=== PATIENT | male | born 1975 | race Caucasian/White ===

== ENCOUNTER 2016-12-01 00:25 | Emergency (ER) | payer OTHER ==
[2016-12-01 00:48] VITALS: BMI 34.3
[2016-12-01] MEDS ORDERED: SODIUM CHLORIDE 1,000 ML IV STA (00:57)
[2016-12-01] MEDS ORDERED: morphine CARPU-JECT 4 MG/1 ML DISP.SYRIN IVPUSH ONE (00:57)
[2016-12-01] MEDS ORDERED: ONDANSETRON 4 MG/2 ML VIAL IVPUSH ONE (00:57)
[2016-12-01] MEDS ORDERED: ONDANSETRON 4 MG/2 ML VIAL ONE ×2 (01:07→02:16)
[2016-12-01] MEDS ORDERED: morphine CARPU-JECT 4 MG/1 ML DISP.SYRIN ONE ×2 (01:07→02:10)
[2016-12-01 01:40] LABS: BASOPHIL 0.3 % (0-2.0); EOSINOPHIL 0.4 % (0-4.5); MCH 29.8 pg (25.7-33.7); MCHC 34.3 g/dl (32.0-35.9); MEAN CELL VOLUME 86.8 fl (80-96); MEAN PLT VOLUME 8.6 fl (7.5-11.1); NEUTROPHILS 85.7 % (42.8-82.8); PLATELET COUNT 296 K/MM3 (134-434); RDW 14.3 % (11.9-15.9); WHITE BLOOD COUNT 19.1 K/mm3 (4.0-10.0)
[2016-12-01] MEDS ORDERED: morphine CARPU-JECT 10 MG/1 ML DISP.SYRIN IVPUSH ONE (02:04)
[2016-12-01] MEDS ORDERED: morphine CARPU-JECT 2 MG/1 ML DISP.SYRIN ONE (02:10)
[2016-12-01 02:13] LABS: ALBUMIN 4.2 g/dl (3.4-5.0); ANION GAP 12 (8-16); BILIRUBIN,TOTAL 1.8 mg/dL (0.2-1.0); CALCIUM 9.4 mg/dL (8.5-10.1); CO2 24 mmol/L (21-32); CREATININE 1.1 mg/dL (0.7-1.3); GLUCOSE,RANDOM 93 mg/dL (74-106); SGOT/AST 26 U/L (15-37); SGPT/ALT 35 U/L (12-78); TOT PROT 7.5 g/dl (6.4-8.2)
[2016-12-01 02:14] LABS: ALK PHOS 65 U/L (45-117)
[2016-12-01] MEDS ORDERED: ONDANSETRON 4 MG/2 ML VIAL IVPB ONE (02:15)
[2016-12-01 02:33] LABS: URINE APPEARANCE CLEAR; URINE BILIRUBIN NEGATIVE (NEGATIVE); URINE BLOOD NEGATIVE (NEGATIVE); URINE COLOR YELLOW; URINE GLUCOSE (UA) NEGATIVE (NEGATIVE); URINE KETONE 2+ (NEGATIVE); URINE LEUK ESTERASE NEGATIVE (NEGATIVE); URINE NITRITE NEGATIVE (NEGATIVE); URINE PROTEIN NEGATIVE (NEGATIVE); URINE UROBILINOGEN 2.0 E.U/dl E.U./dl (0.2-1.0)
[2016-12-01 02:46] LABS: TROPONIN I < 0.02 ng/ml (0.00-0.05)
--- NOTE | 2016-12-01 02:53 | PDOC ---
"History of Present Illness - General Chief Complaint: Pain Stated Complaint: ABD PAIN/NAUSEA Time Seen by Provider: 12/01/16 00:34 History Source: Patient Exam Limitations: No Limitations - History of Present Illness Travel History: No Initial Comments: 12/01/16 02:48 41yo Male patient w/ PmHx: diverticulitis presents to ED c/o Mid abdominal to lower abd pain beginning yesterday. 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 Patient reports while he was in bathroom today he became dizzy, pale and nauseous. Last BM today (small trell). PCP- Dr. Cuello. 12/01/16 06:35 PATIENT STATES HE BELIEVES SYMPTOMS MAKE BE TRIGGERED DUE TO EATING POPCORN LAST NIGHT. Timing/Duration: reports: getting worse Quality: reports: moderate, other (Waves) Abdominal Pain Onset Location: reports: LLQ, epigastric Pain Radiation: reports: no radiation Activities at Onset: reports: none Past History - Travel Traveled outside of the country in the last 30 days: No Close contact w/someone who was outside of country & ill: No - Past Medical History Allergies/Adverse Reactions: Allergies Allergy/AdvReac Type Severity Reaction Status Date / Time No Known Allergies Allergy Verified 12/01/16 00:38 Home Medications: Ambulatory Orders Oxycodone HCl/Acetaminophen [Percocet 10-325 mg Tablet] 1 each PO Q6H PRN #24 tablet MDD 4 tabs 12/01/16 GI Disorders: Yes (DIVERTICULOSIS/ HIATAL HERNIA) - Immunization History Immunization Up to Date: No - Psycho/Social/Smoking Cessation Hx Suicidal Ideation: No Smoking History: Never smoked Have you smoked in the past 12 months: No Information on smoking cessation initiated: No Hx Alcohol Use: No Drug/Substance Use Hx: No Substance Use Type: None Abd/GI Specific PMHX - Complaint Specific PMHX Colitis: No Diverticulitis: Yes Gall Bladder Disease: No GERD: No Hepatitis: No Irritable Bowel Synd (IBS): No Pancreatitis: No GI Ulcer Disease: No Review of Systems - Review of Systems Able to Perform ROS?: Yes Is the patient limited Swedish proficient: No Constitutional: No: Chills, Fever Respiratory: No: Cough, Orthopnea, Wheezing Cardiac (ROS): No: Chest Pain, Lightheadedness, Palpitations, Syncope ABD/GI: Yes: Nausea, Vomiting, Other (Mid abdominal pain radiating to LLQ). No : Diarrhea, Poor Appetite, Poor Fluid Intake, Rectal Bleeding, Abdominal cramping : No: Burning, Dysuria, Discharge, Frequency, Flank Pain, Pain Musculoskeletal: No: Back Pain Hematologic/Lymphatic: Yes: Symptoms Reported *Physical Exam - Vital Signs Last Vital Signs Temp Pulse Resp BP Pulse Ox 97.8 F 89 20 126/72 98 12/01/16 00:38 12/01/16 00:38 12/01/16 00:38 12/01/16 00:38 12/01/16 00:38 - Physical Exam General Appearance: Yes: Nourished, Appropriately Dressed, Moderate Distress. No: Apparent Distress, Mild Distress, Severe Distress Neck: positive: Trachea midline, Supple. negative: Lymphadenopathy (R), Lymphadenopathy (L) Respiratory/Chest: positive: Lungs Clear, Normal Breath Sounds. negative: Respiratory Distress, Accessory Muscle Use, Labored Respiration, Rapid RR, Decreased Breath Sounds, Stridor, Wheezing Cardiovascular: positive: Regular Rhythm, Regular Rate Gastrointestinal/Abdominal: positive: Soft, Increased Bowel Sounds, Guarding, Rebound, Tenderness (Generalized abdominal tenderness.). negative: Distended Musculoskeletal: positive: Normal Inspection. negative: CVA Tenderness Extremity: positive: Normal Capillary Refill, Normal Inspection, Normal Range of Motion Integumentary: positive: Normal Color, Dry, Warm Neurologic: positive: court monitor II-XII NML intact, Fully Oriented, Alert, Normal Mood/ Affect, Normal Response, Motor Strength 5/5 ED Treatment Course - LABORATORY CBC & Chemistry Diagram: 12/01/16 01:20 12/01/16 01:20 - ADDITIONAL ORDERS Additional order review: Laboratory Results 12/01/16 12/01/16 02:26 01:20 Sodium 138 Potassium 3.6 Chloride 102 Carbon Dioxide 24 Anion Gap 12 BUN 13 Creatinine 1.1 Creat Clearance w eGFR > 60 Random Glucose 93 Calcium 9.4 Total Bilirubin 1.8 H D AST 26 ALT 35 Alkaline Phosphatase 65 Total Protein 7.5 Albumin 4.2 Urine Color Yellow Urine Appearance Clear Urine pH 6.0 Ur Specific [place] 1.015 Urine Protein Negative Urine Glucose (UA) Negative Urine Ketones 2+ H Urine Blood Negative Urine Nitrite Negative Urine Bilirubin Negative Urine Urobilinogen 2.0 e.u/dl Ur Leukocyte Esterase Negative 12/01/16 01:20 RBC 5.37 MCV 86.8 MCHC 34.3 RDW 14.3 MPV 8.6 Neutrophils % 85.7 H Lymphocytes % 6.6 L D Monocytes % 7.0 Eosinophils % 0.4 Basophils % 0.3 - RADIOLOGY Radiology Studies Ordered: Category Date Time Status ABDOMEN & PELVIS CT WITH CONTR [CT] Stat CT Scan 12/01/16 02:01 Ordered - Medications Given in the ED: ED Medications Discontinued Medications Generic Name Dose Route Start Last Admin Trade Name Freq PRN Reason Stop Dose Admin Sodium Chloride 1,000 mls @ 1,000 mls/hr 12/01/16 00:57 12/01/16 01:25 Normal Saline - IV 12/01/16 01:56 1,000 mls/hr ASDIR STA Administration Morphine Sulfate 4 mg 12/01/16 00:57 12/01/16 01:25 Morphine Injection - IVPUSH 12/01/16 00:58 4 mg ONCE ONE Administration Morphine Sulfate 6 mg 12/01/16 02:04 12/01/16 02:20 Morphine Injection - IVPUSH 12/01/16 02:05 6 mg ONCE ONE Administration Ondansetron HCl 4 mg 12/01/16 00:57 12/01/16 01:26 Zofran Injection IVPUSH 12/01/16 00:58 4 mg ONCE ONE Administration Ondansetron HCl 8 mg 12/01/16 02:15 12/01/16 02:21 Zofran Injection IVPB 12/01/16 02:16 8 mg ONCE ONE Administration Progress Note - Progress Note Progress Note: Search Terms: Miguel Adams, 1975 Search Date: 12/01/2016 06:32:41 AM The Drug Utilization Report below displays all of the controlled substance prescriptions, if any, that your patient has filled in the last twelve months. The information displayed on this report is compiled from pharmacy submissions to the Department, and accurately reflects the information as submitted by the pharmacies. This report was requested by: Gabe Perea | Reference #: [id number] *DC/Admit/Observation/Transfer Diagnosis at time of Disposition: Reflux esophagitis Diverticulitis Qualifiers: Diverticulitis site: large intestine Diverticulitis bleeding: without bleeding Diverticulitis complication: without perforation or abscess Qualified Code(s): K57.32 - Diverticulitis of large intestine without perforation or abscess without bleeding - Discharge Dispostion Disposition: HOME Condition at time of disposition: Improved Admit: No - Prescriptions Prescriptions: Oxycodone HCl/Acetaminophen [Percocet 10-325 mg Tablet] 1 each PO Q6H PRN #24 tablet MDD 4 tabs PRN Reason: Severe Pain - Patient Instructions Printed Discharge Instructions: DI for Diverticulitis, DI for Gastroesophageal Reflux Disease (GERD) Additional Instructions: FOLLOW UP WITH DR. KRAUS ([facility]) OR YOUR GI SPECIALIST. CALL TO SCHEDULE APPOINTMENT. TAKE MEDICATIONS PRESCRIBED. DO NOT DRIVE, DRINK ALCOHOL, OR OPERATE HEAVY MACHINERY WHILE TAKING PERCOCET. DRINK PLENTY WATER. AVOID ALCOHOL , SPICY FOODS AND FOODS WITH SEEDS. Print Language: SRI LANKAN - Post Discharge Activity Work/School Note: Back to Work"
--- NOTE | 2016-12-01 06:21 | PDOC ---
[id number] 98 12/01/16 00:38 12/01/16 00:38 12/01/16 00:38 12/01/16 00:38 12/01/16 00:38 ED Treatment Course - LABORATORY CBC & Chemistry Diagram: 12/01/16 01:20 12/01/16 01:20 - ADDITIONAL ORDERS Additional order review: Laboratory Results 12/01/16 12/01/16 12/01/16 02:26 01:20 01:20 Sodium 138 Potassium 3.6 Chloride 102 Carbon Dioxide 24 Anion Gap 12 BUN 13 Creatinine 1.1 Creat Clearance w eGFR > 60 Random Glucose 93 Calcium 9.4 Total Bilirubin 1.8 H D AST 26 ALT 35 Alkaline Phosphatase 65 Creatine Kinase 251 Creatine Kinase Index 0.5 CK-MB (CK-2) 1.222 Troponin I < 0.02 Total Protein 7.5 Albumin 4.2 Urine Color Yellow Urine Appearance Clear Urine pH 6.0 Ur Specific [place] 1.015 Urine Protein Negative Urine Glucose (UA) Negative Urine Ketones 2+ H Urine Blood Negative Urine Nitrite Negative Urine Bilirubin Negative Urine Urobilinogen 2.0 e.u/dl Ur Leukocyte Esterase Negative 12/01/16 01:20 RBC 5.37 MCV 86.8 MCHC 34.3 RDW 14.3 MPV 8.6 Neutrophils % 85.7 H Lymphocytes % 6.6 L D Monocytes % 7.0 Eosinophils % 0.4 Basophils % 0.3 - Medications Given in the ED: ED Medications Discontinued Medications Generic Name Dose Route Start Last Admin Trade Name Freq PRN Reason Stop Dose Admin Sodium Chloride 1,000 mls @ 1,000 mls/hr 12/01/16 00:57 12/01/16 01:25 Normal Saline - IV 12/01/16 01:56 1,000 mls/hr ASDIR STA Administration Morphine Sulfate 4 mg 12/01/16 00:57 12/01/16 01:25 Morphine Injection - IVPUSH 12/01/16 00:58 4 mg ONCE ONE Administration Morphine Sulfate 6 mg 12/01/16 02:04 12/01/16 02:20 Morphine Injection - IVPUSH 12/01/16 02:05 6 mg ONCE ONE Administration Ondansetron HCl 4 mg 12/01/16 00:57 12/01/16 01:26 Zofran Injection IVPUSH 12/01/16 00:58 4 mg ONCE ONE Administration Ondansetron HCl 8 mg 12/01/16 02:15 12/01/16 02:21 Zofran Injection IVPB 12/01/16 02:16 8 mg ONCE ONE Administration Medical Decision Making - Medical Decision Making 12/01/16 06:21 agree with care from CIGAR MAKING MACHINE SUPERVISOR Eliazar *DC/Admit/Observation/Transfer Diagnosis at time of Disposition: Diverticulitis, Reflux esophagitis - Discharge Dispostion Disposition: HOME Condition at time of disposition: Improved - Prescriptions Prescriptions: Oxycodone HCl/Acetaminophen [Percocet 10-325 mg Tablet] 1 each PO Q6H PRN #24 tablet MDD 4 tabs PRN Reason: Severe Pain - Referrals Referrals: Mendel Cuello [Primary Care Provider] - - Patient Instructions Printed Discharge Instructions: DI for Diverticulitis, DI for Gastroesophageal Reflux Disease (GERD) Additional Instructions: FOLLOW UP WITH DR. KRAUS ([facility]) OR YOUR GI SPECIALIST. CALL TO SCHEDULE APPOINTMENT. TAKE MEDICATIONS PRESCRIBED. DO NOT DRIVE, DRINK ALCOHOL, OR OPERATE HEAVY MACHINERY WHILE TAKING PERCOCET. DRINK PLENTY WATER. AVOID ALCOHOL , SPICY FOODS AND FOODS WITH SEEDS. Print Language: HEBREW - Post Discharge Activity Work/School Note: Back to Work
[2016-12-01] MEDS ORDERED: OXYCODONE/APAP 5/325MG COMBO TABLET PO ONE (06:26)
[2016-12-01] MEDS ORDERED: CIPROFLOXACIN 250 MG TABLET (RESTRICTED TO ID) PO ONE (06:26)
[2016-12-01] MEDS ORDERED: metroNIDAZOLE 250 MG TABLET PO ONE (06:26)
[2016-12-01] MEDS ORDERED: OXYCODONE/APAP 5/325MG COMBO TABLET ONE (06:34)
[2016-12-01] MEDS ORDERED: metroNIDAZOLE 250 MG TABLET ONE (06:35)
[2016-12-01 06:47] VITALS: BP 125/76; PULSE 96; TEMP 98.3
== END 2016-12-01 06:49 | disposition home or self-care (01) ==
LOC: JER 00:25
PROC: 3E033NZ Introduction of Analgesics, Hypnotics, Sedatives into Peripheral Vein, Percutaneous Approach (ICD-10-PCS; principal; 2016-12-01)
PROC: 3E033GC Introduction of Other Therapeutic Substance into Peripheral Vein, Percutaneous Approach (ICD-10-PCS; 2016-12-01)
PROC: 3E0337Z Introduction of Electrolytic and Water Balance Substance into Peripheral Vein, Percutaneous Approach (ICD-10-PCS; 2016-12-01)
DX: K21.0 Gastro-esophageal reflux disease with esophagitis (principal); K57.32 Diverticulitis of large intestine without perforation or abscess without bleeding
CPT/HCPCS: 36415; 74177-TC; 80053; 81003; 82550; 82553; 84484; 85025; 87040; 99282-25

== ENCOUNTER 2021-07-06 20:54 | Emergency (ER) | payer OTHER ==
[2021-07-06 21:29] VITALS: TEMP 100.8; BMI 34.3
[2021-07-06] MEDS ORDERED: CEFTRIAXONE 1 GM in DEXTROSE 5%-WATER - 50 ML IVPB ONE (22:04)
[2021-07-06] MEDS ORDERED: ACETAMINOPHEN 1000 MG/100 ML VIAL IVPB ONE ×2 (22:04→22:16)
[2021-07-06] MEDS ORDERED: SODIUM CHLORIDE 1,000 ML IV STA (22:05)
[2021-07-06] MEDS ORDERED: KETOROLAC TROMETHAMINE 30 MG/1 ML VIAL IVPUSH ONE ×2 (22:11→23:24)
[2021-07-06] MEDS ORDERED: KETOROLAC TROMETHAMINE 30 MG/1 ML VIAL ONE (22:14)
[2021-07-06] MEDS ORDERED: ACETAMINOPHEN INJECTION 100 ML IVPB ONE (22:15)
[2021-07-06] MEDS ORDERED: SODIUM CHLORIDE 500 ML IV STA (22:22)
[2021-07-06 22:24] LABS: EPI CELLS 0 /uL (0-25.1); HYALINE CASTS 0 /uL (0-3.1); URINE APPEARANCE CLOUDY; URINE BACTERIA >9,000 /uL (0-1359); URINE BILIRUBIN NEGATIVE (NEGATIVE); URINE COLOR YELLOW; URINE GLUCOSE (UA) NEGATIVE (NEGATIVE); URINE KETONE NEGATIVE (NEGATIVE); URINE LEUK ESTERASE 3+ (NEGATIVE); URINE NITRITE NEGATIVE (NEGATIVE); URINE PROTEIN NEGATIVE (NEGATIVE); URINE RBC 19 /uL (0-23.9); URINE UROBILINOGEN 0.2 mg/dL (0.2-1.0); URINE WBC 1061 /uL (0-25.8)
[2021-07-06] MEDS ORDERED: CEFTRIAXONE 1,000 MG in DEXTROSE 5%-WATER - 50 ML IVPB ONE (22:41)
[2021-07-06] MEDS ORDERED: CEFTRIAXONE 1 GM/50 ML BAG ONE (22:43)
[2021-07-06 22:48] LABS: HEMATOCRIT 44.5 % (35.4-49); HEMOGLOBIN 15.1 GM/dL (11.7-16.9); MCH 29.4 pg (25.7-33.7); MEAN CELL VOLUME 86.5 fl (80-96); MEAN PLT VOLUME 7.9 fl (7.5-11.1); PLATELET COUNT 294 10^3/uL (134-434); RBC 5.14 M/mm3 (4.00-5.60); RDW 13.6 % (11.9-15.9)
[2021-07-06 23:17] LABS: ALBUMIN 3.9 g/dl (3.4-5.0); BLOOD UREA NITROGEN 11.2 mg/dL (7-18)
[2021-07-06 23:18] LABS: ANISOCYTOSIS 2+; MACROCYTOSIS 0; PLATELET ESTIMATE NORMAL
[2021-07-06 23:20] LABS: CREATININE 1.2 mg/dL (0.55-1.3)
[2021-07-06 23:22] LABS: BILIRUBIN,TOTAL 1.3 mg/dL (0.2-1); TOT PROT 7.7 g/dl (6.4-8.2)
[2021-07-07] MEDS ORDERED: TAMSULOSIN HCL 0.4 MG CAP PO ONE (01:43)
[2021-07-07] MEDS ORDERED: TAMSULOSIN HCL 0.4 MG CAP ONE (02:19)
[2021-07-07 02:50] VITALS: BP 117/76; PULSE 92
== END 2021-07-07 02:51 | disposition home or self-care (01) ==
LOC: JER 20:54
PROC: 3E03329 Introduction of Other Anti-infective into Peripheral Vein, Percutaneous Approach (ICD-10-PCS; principal; 2021-07-06)
PROC: 3E033NZ Introduction of Analgesics, Hypnotics, Sedatives into Peripheral Vein, Percutaneous Approach (ICD-10-PCS; 2021-07-06)
PROC: 3E033GC Introduction of Other Therapeutic Substance into Peripheral Vein, Percutaneous Approach (ICD-10-PCS; 2021-07-06)
PROC: 3E0333Z Introduction of Anti-inflammatory into Peripheral Vein, Percutaneous Approach (ICD-10-PCS; 2021-07-06)
PROC: 3E0333Z Introduction of Anti-inflammatory into Peripheral Vein, Percutaneous Approach (ICD-10-PCS; 2021-07-06)
DX: R30.0 Dysuria (principal)
CPT/HCPCS: 36415; 74177-TC; 80053; 81003; 85025; 87086; 87186; 87491; 87591; 99285-25; J0131